=== PATIENT | female | born 1965 | race Caucasian/White ===

== ENCOUNTER → 2020-01-06 11:53 | Outpatient (CLI) | payer BC, SELFPAY ==
--- NOTE | ~2020-01-06 | US_ITS ---
EXAMINATION: US pelvic complete DATE: 01/06/2020 12:12 INDICATION: Pelvic pain Comparison:No prior studies for comparison. TECHNIQUE: Multiple transabdominal sonographic images of the pelvis performed. FINDINGS: The uterus measures 9.7 x 3.3 x 3.7 cm. The endometrial complex measures 3 mm. Ovaries not visualized. No adnexal masses. There is no free fluid in the pelvis. There are no abnorm al masses seen on either side. IMPRESSION: 1. Unremarkable pelvic ultrasound. Reviewed, dictated and finalized at location A.
== END ==
PROVIDERS: Visit Provider Obstetrics & Gynecology
DX: R10.2 Pelvic and perineal pain (principal)
CPT/HCPCS: 76856

== ENCOUNTER → 2022-06-01 10:55 | Outpatient (CLI) | payer BC, SELFPAY ==
--- NOTE | ~2022-06-01 | US_ITS ---
US breast LT complete DATE: 06/01/2022 12:22 INDICATION: Left breast and axillary intermittent pain TECHNIQUE: Real-time imaging of complete left breast and left axilla, including all 4 quadrants and s ubareolar area COMPARISON: 02/04/2022 and 08/01/2018 [facility] mobile van bilateral screening mammogram exam inations FINDINGS: Benign-appearing approximately 5.8 x 16 mm left axillary lymph node. No suspicious left breast or left axillary mass lesion or suspicious shadowing or other significant s onographic finding is noted. IMPRESSION: BI-RADS Category 1: Negative Reviewed, dictated and finalized at Location A. Reviewed, dictated and finalized at location A. 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
--- NOTE | ~2022-06-01 | XR_ITS ---
EXAMINATION: XR ribs LT 2V w CXR 2V INDICATION: Left axillary pain TECHNIQUE: PA and lateral views of the chest and 3 views of the left ribs were obtained. COMPARISON: None. FINDINGS: The lungs are free of acute opacities. No pleural effusion or pneumothorax. The cardiomedia stinal silhouette is normal. There is mild thoracic spondylosis. No displaced rib fracture is identif ied. IMPRESSION: 1. No acute cardiopulmonary abnormality or evidence of displaced rib fracture. Reviewed, dictated and finalized at location B. 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
== END ==
PROVIDERS: PCP Family Medicine; Visit Provider Nurse Practitioner Adult Health
DX: M79.602 Pain in left arm (principal); R59.9 Enlarged lymph nodes, unspecified; R07.9 Chest pain, unspecified
CPT/HCPCS: 71046; 71100; 76641